=== PATIENT | male | born 1975 | race Caucasian/White ===

== ENCOUNTER 2020-07-25 19:22 | Emergency (ER) | payer OTHER, MEDICAID, SELFPAY ==
[2020-07-25 19:29] VITALS: BP 146/82; PULSE 118; RESP 27; TEMP 37.2; O2SAT 100
[2020-07-25 20:23] VITALS: BP 156/77; PULSE 116; TEMP 36.6; O2SAT 98
--- NOTE | 2020-07-25 23:04 | ED.BACK ---
HPI - Back Pain/Injury General Chief Complaint: Back Pain/Injury Stated Complaint: back pain past 4 months Time Seen by Provider: 07/25/20 21:40 Source: patient History of Present Illness HPI Narrative: 45-year-old gentleman with a history of previous subarachnoid hemorrhage with traumatic brain injury, chronic low back pain with bilateral sciatica, alcohol use disorder, history of ADHD, homelessness who presents complaining of worsening of his chronic back pain. He has a primary care doctor at [facility] in [place]. He has been seen in the ER in [place] he has had multiple prescriptions for lidocaine patches tramadol oxycodone methylprednisolone Tylenol diclofenac ibuprofen tizanidine, cyclobenzaprine and tramadol. He has many of these medications with him in his bag. He isn't sure that they work very actively. As best I can tell tried to fill another oxycodone prescription and the pharmacy told him it was too soon and they were not able to do that so he came to the emergency room for further evaluation. He states he has an appointment with [facility] on the . He is significantly agitated easily moving about the room without any pain behaviors. He actually takes shower in the emergency department. He denies fevers, cough, chills, chest pain, change to bowel or bladder habits. Related Data Home Medications Medication Instructions Recorded Confirmed [SLEEP] #0 04/30/12 alprazolam [Xanax] #0 04/30/12 Allergies Allergy/AdvReac Type Severity Reaction Status Date / Time No Known Drug Allergies Allergy Verified 07/25/20 19:31 Review of Systems Review of Systems Narrative: Remainder of complete review of systems is otherwise unremarkable except for that included in the HPI. Patient History Medical History Chronic low back pain with sciatica Traumatic brain injury Surgical History Status post cholecystectomy Social History Smoking Status: Current every day smoker Smoking Status: Current every day smoker Exam Narrative Exam Narrative: General: Clean in sparkly after his shower here in the emergency department. Pacing about the room with no pain behaviors. Quite literally jumps into the bed when I walk into the room to examine him to be helpful and no pain behaviors or limitations of low back hips or knees. HEENT: Moist mucous membranes, injected sclera bilaterally with left eye with subconjunctival hemorrhage Respiratory: Lungs are clear to auscultation, no wheezing no rales no rhonchi. Full and symmetrical air movement Cardiac: Regular rate and rhythm no murmurs no bruits Abdomen: Soft, nontender, good bowel tones, no flank pain Skin: Warm and dry, no rashes Spine: No point tenderness along the thoracic or lumbar spine. He has some muscle spasm in the right lumbar paraspinous area. Neurologic: Grossly neurologically intact with no obvious asymmetries or abnormalities Extremities: No trauma, well perfused Psych: Pressured speech, tangential thinking, perseverating thoughts regarding the need for spine surgery Initial Vital Signs Initial Vital Signs: Vital Signs Temperature 99.0 F 07/25/20 19:29 Pulse Rate 118 H 07/25/20 19:29 Respiratory Rate 27 H 07/25/20 19:29 Blood Pressure 146/82 H 07/25/20 19:29 Pulse Oximetry 100 07/25/20 19:29 Course Orders Ordered: Discontinued Medications Ketorolac Tromethamine (Ketorolac 30 Mg/Ml Vial) 30 mg IM NOW ONE Stop: 07/25/20 23:02 Last Admin: 07/25/20 23:09 Dose: 30 mg Documented by: MIGUE Vital Signs Vital signs: Vital Signs - 8 hr 07/25/20 19:29 07/25/20 20:23 Temperature 99.0 F 97.8 F Pulse Rate 118 H 116 H Respiratory Rate 27 H Blood Pressure 146/82 H 156/77 H Pulse Oximetry [address] [facility] - Back Pain/Injury Medical Records Attestation: I reviewed the patient's medical records. [facility] Narrative Medical decision making narrative: 45-year-old gentleman presents with back pain. History is difficult to follow and his thought process is quite scattered at this point. He does appear to be moderately intoxicated. He is concerned about his back pain but moves about the room with no pain behaviors at all. He has medications recently received from the emergency room in billing cam available to him in his backpack. As best I can tell, he was not able to fill an oxycodone prescription. He states he has an appointment with [facility] on July 25. As that is today he may have missed that appointment but he seems to think it is coming up in the next 2 days. He had multiple questions about the need for back surgery and results of recent MRI that was done. Explain him that I did not have access to those medical records nor was the so correct than you to continue pursuing this. Encouraged him to follow-up with his primary care doctor at [facility] and make sure he keeps his appointment with the [facility]. He is offered a short of Toradol and is discharged. At this time there is no evidence of sepsis, epidural abscess, cauda equina syndrome. Discharge Plan Departure Patient Disposition: Home Clinical Impression: Chronic back pain Qualifiers: Back pain location: low back pain Back pain laterality: bilateral Sciatica presence: with sciatica Sciatica laterality: bilateral sciatica Qualified Code(s): M54.42 - Lumbago with sciatica, left side Instructions: DI for Low Back Pain Activity Restrictions/Additional Instructions: Thank you for coming in today You need to continue the medications that you currently have available to help with her chronic back pain. I would encourage you to follow-up with your primary care physician at [facility] and keep your appointment with the [facility]. I wish you the best Prescriptions: No Action alprazolam [Xanax] 1 MG tablet Qty: 0 RF: 0 [SLEEP] Qty: 0 RF: 0
[2020-07-25] MEDS: KETOROLAC 30 MG/ML VIAL IM (23:09)
== END 2020-07-25 23:37 | disposition home or self-care (01) ==
PROVIDERS: Emergency Provider Emergency Medicine
DX: M54.42 Lumbago with sciatica, left side (principal)
CPT/HCPCS: 96372; 99283; J1885